=== PATIENT | male | born 1950 | race Caucasian/White ===

== ENCOUNTER 2017-12-21 11:43 | Day surgery (SDC) | payer BC, MEDICAID ==
[2017-12-21] MEDS ORDERED: LIDOCAINE 2% MDV (20MG/ML) 20ML VIAL IV ONE (11:44)
[2017-12-21] MEDS ORDERED: FENTANYL PF 0.25MG/5ML AMPUL IV ONE (11:44)
--- NOTE | 2017-12-25 12:30 | Operative Note ---
DATE OF SURGERY: 12/21/2017 SURGEON: Katelyn Nichols MD OPERATION: COLONOSCOPY. INDICATIONS: This is a 67-year-old male with history of colon polyps who presented for surveillance colonoscopy. POSTOPERATIVE DIAGNOSES: 1. Two 2-3 mm sigmoid colon polyps that were removed by cold biopsy forceps. 2. Poor bowel preparation especially in the right colon. ANESTHESIA: Sedation is per Anesthesia. Pulse oximetry was monitored throughout the procedure to maintain O2 saturation of 90% or greater. Supplemental oxygen was administered via nasal cannula. Cardiac and vital signs were monitored throughout the duration of the procedure, and they were stable. The procedure of colonoscopy and risks and alternatives of the procedure, including the risk of bleeding and perforation, among others, were explained to the patient who voiced understanding and agreed to have the procedure done. Physical examination was performed, and the patient was found stable for sedation. PROCEDURE: The patient was placed in the left lateral position. Sedation was initiated. A digital rectal exam was performed and showed some mild external hemorrhoids with no palpable rectal masses. An Olympus PCF-180AL colonoscope was then inserted into the rectum under direct visualization. It was advanced to the cecum without difficulty. The ileocecal valve and appendiceal orifice were identified and photographed. The colonic mucosa was carefully examined upon introduction of the colonoscope. There were two 2-3 mm sessile polyps in the sigmoid colon that were noted and they were removed by cold biopsy forceps. There were no other lesions noted. In the right colon, however, was suboptimal bowel preparation that precluded complete examination of the cecum and the proximal ascending colon. The colonoscope was then withdrawn while carefully examining the colonic mucosal surfaces. No other lesions were noted. In the rectum, retroflexion was performed and grade 1 internal hemorrhoids were noted. The colonoscope was then withdrawn and the procedure was terminated. The patient tolerated the procedure well without any immediate complications. He remained with stable vital signs and was transferred to the recovery room. RECOMMENDATIONS: 1. The patient should be on a high-fiber diet. 2. The patient is to have a repeat colonoscopy in a year with 2-day to 3-day bowel preparation. Thank you for allowing me to participate in the care of your patient. CC: Dr. Emanuel HUI
== END 2017-12-21 13:48 | disposition home or self-care (01) ==
LOC: HOP 11:43
PROVIDERS: ATTEND Internal Medicine Gastroenterology
DX: Z12.11 Encounter for screening for malignant neoplasm of colon (principal); Z86.010 Personal history of colon polyps; D12.5 Benign neoplasm of sigmoid colon; Z86.718 Personal history of other venous thrombosis and embolism; Z79.01 Long term (current) use of anticoagulants

== ENCOUNTER 2018-04-11 01:32 | Observation (INO) | payer BC, MEDICAID ==
[2018-04-11] MEDS ORDERED: ONDANSETRON HCL IV 4 MG/2 ML VIAL IV ONE (01:57)
[2018-04-11] MEDS ORDERED: SODIUM CHLORIDE 0.9% 500 ML IV ONE (01:57)
[2018-04-11] MEDS ORDERED: MORPHINE SULFATE 10 MG/ML VIAL IVP ONE ×2 (01:58→02:19)
--- NOTE | 2018-04-11 02:05 | Emergency Department Record ---
History of Present Illness - General Chief Complaint: Abdominal Pain Stated Complaint: UPSET STOMACH-ATE BAD EGGS Time Seen by Provider: 04/11/18 01:46 Source: Patient Mode of Arrival: Ambulatory Limitations: No limitations - History of Present Illness Initial Comments: The patient is here due to diffuse abdominal pain for 4-5 hours. The pain is around the umbilicus and in the lower abdomen. The onset was fairly sudden and has been associated with nausea but no vomiting, diarrhea, or fever. The patient attributes the pain to eating bad eggs. He has no hx of similar issues and no hx of any abdominal surgeries. The patient does take Xarelto due to a hx of DVT's. MD Complaint: Abdominal pain Onset/Timin -: Hour(s) Location: Periumbilical, Suprapubic Severity scale (1-10): 9 Quality: Cramping Consistency: Constant Improves With: Nothing Worsens With: Nothing Associated Symptoms: Nausea - Related Data Home Medications Medication Instructions Recorded Confirmed Last Taken Rivaroxaban [Xarelto] 20 mg PO DAILY 04/11/18 04/11/18 Unknown Allergies Allergy/AdvReac Type Severity Reaction Status Date / Time No Known Drug Intolerances Allergy Unknown None Verified 01/28/15 19:16 Travel Screening - Travel/Exposure Within Last 30 Days Have you traveled within the last 30 days?: No - Travel Symptoms Symptom Screening: None Review of Systems Constitutional: Denies: Chills, Fever Eyes: Denies: Eye discharge ENT: Denies: Congestion Respiratory: Denies: Cough, Dyspnea Cardiovascular: Denies: Arrhythmia, Chest pain, Dyspnea on exertion Endocrine: Denies: Fatigue Gastrointestinal: Reports: Abdominal pain, Nausea. Denies: Diarrhea, Vomiting Genitourinary: Denies: Dysuria, Hematuria Musculoskeletal: Reports: Back pain (chronic.) Past Medical History - SOCIAL HISTORY Smoking Status: Current every day smoker Alcohol Use: Rare Drug Use: None - RESPIRATORY Hx Respiratory Disorders: Yes Comment:: smoker - CARDIOVASCULAR Hx Cardio Disorders: Yes Hx Deep Vein Thrombosis: Yes (04/2017) Hx Edema: Yes - NEURO Hx Neuro Disorders: No - GI Hx GI Disorders: Yes Hx Reflux: Yes (not currently) Hx of Polyps: Yes - Hx Genitourinary Disorders: Yes Hx Prostate Problems: Yes - ENDOCRINE Hx Endocrine Disorders: No - MUSCULOSKELETAL Hx Musculoskeletal Disorders: Yes Hx Arthritis: Yes - PSYCH Hx Psych Problems: No - HEMATOLOGY/ONCOLOGY Hx Hematology/Oncology Disorders: Yes Hx Clotting Problems: Yes (on Xarleto for hx DVT) Family Medical History Any Significant Family History?: Yes Hx Cancer: Father *Cancer Comment: bone Hx HTN: Mother Physical Exam - General General Appearance: Alert, Oriented x3, Cooperative, Mild distress (due to AP.) - Head Head exam: Atraumatic, Normocephalic - Eye Eye exam: Normal appearance, PERRL - Neck Neck exam: Normal inspection, Full ROM. negative: Tenderness - Respiratory Respiratory exam: Normal lung sounds bilaterally. negative: Respiratory distress - Cardiovascular Cardiovascular Exam: Regular rate, Normal rhythm, Normal heart sounds - GI/Abdominal GI/Abdominal exam: Soft, Tenderness (There is mild diffuse lower abdominal tenderness.). negative: Distended, Guarding, Rebound, Rigid - Extremities Extremities exam: Normal inspection, Full ROM, Normal capillary refill. negative: Tenderness Image of Full Body: 1 - Area of pain and tenderness. - Neurological Neurological exam: Alert, Normal gait. negative: Abnormal gait, Motor sensory deficit - Psychiatric Psychiatric exam: negative: Anxious Course Vital Signs 04/11/18 01:40 Temperature 97.9 F Pulse Rate [ 61 Pulse Ox Probe] Respiratory 18 Rate Blood Pressure 167/102 [Left Arm] Pulse Ox 99 - Reevaluation(s) Reevaluation #1: The patient is doing better at this time. His pain is improved and he is back from CT. I did explain to him that his CT does demonstrate an infection in his GB. Due to that fact I did recommend a surgical consultation and did discuss the case with Dr. Hernandez who would like to admit the patient to the hospital for surgery later today. 04/11/18 03:59 Reevaluation #2: The patient now states he must go home briefly to take care of 2 dogs and no one else can do it. I explained to him that the risks of leaving are that he could get a worse infection, have sepsis, become disabled and . The patient states he will return and understands he will be leaving AMA. I also clearly explained to the patient that he could not drive home. His cousin is here and she will drive him there and back. 04/11/18 04:11 04/11/18 04:27 Medical Decision Making - Data Complexity MDM Data: Labs Ordered and/or Reviewed, X-Ray Ordered and/or Reviewed - Lab Data Result diagrams: 04/11/18 02:05 04/11/18 02:05 - Radiology Data Radiology results: Report reviewed (CT: Lobular density in GB prob gallstone. Distended GB with small amount of fluid suggesting acute Cholecystitis.) Disposition Disposition: Admit Clinical Impression: Acute cholecystitis Disposition: Still a Patient at [facility] Decision to Admit: Admit from ER Decision to Admit Date: 04/11/18 Decision to Admit Time: 04:01 Accepting Physician: Mary Time Discussed w/Accepting Physician: 04:01 Condition: (2) Stable Forms: Patient Portal Access Time of Disposition: 04:01 Quality - Quality Measures Quality Measures: N/A - Blood Pressure Screening View Details: Yes Does Patient Have Any of the Following: No Blood Pressure Classification: Pre-Hypertensive BP Reading Systolic Measurement: 141 Diastolic Measurement: 84 Screening for High Blood Pressure: < Pre-Hypertensive BP, F/U Documented > [ G8950] Pre-Hypertensive Follow-up Interventions: Referral to alternative/primary care provider.
[2018-04-11 02:10] LABS: BASO % 0.3 % (0-6); EOS % 0.9 % (0-6); GRAN % 55.7 % (47-80); HEMATOCRIT 46.2 % (42.0-52.0); HEMOGLOBIN 15.5 gm/dl (14.0-18.0); LYMPH % 39.4 % (16-45); MEAN CELL VOLUME 84.9 fl (81-97); MEAN CORPUSCULAR HEMOGLOBIN 28.5 pg (27-33); MEAN CORPUSCULAR HGB CONC 33.5 g/dl (32-36); MEAN PLATELET VOLUME 9.7 fl (7.4-10.4); MONO % 3.7 % (0-9); PLATELET COUNT 273 K/uL (130-400); RED BLOOD COUNT 5.44 M/uL (4.40-5.70); RED CELL DISTRIBUTION WIDTH 14.4 % (11.5-14.5)
[2018-04-11 02:22] LABS: PARTIAL THROMBOPLASTIN TIME 29.9 SECONDS (24.5-39.1); PROTHROMBIN TIME (PATIENT) 10.4 SECONDS (9.5-12.1)
[2018-04-11 02:34] LABS: BLOOD UREA NITROGEN 13 mg/dL (8-23); CREATININE 0.7 mg/dL (0.7-1.2); EST GLOMERULAR FILTRATION RATE > 60 mL/min
[2018-04-11 02:35] LABS: TOTAL PROTEIN 7.9 g/dL (6.6-8.7)
[2018-04-11 02:36] LABS: GLUCOSE,RANDOM 124 mg/dL (74-109)
[2018-04-11 02:39] LABS: ALBUMIN 4.8 g/dL (4.0-5.0); ALKALINE PHOSPHATASE 77 U/L (40-129); ALT/SGPT 11 U/L (<41); AST/SGOT 13 U/L (10.0-50.0); BILIRUBIN,DIRECT < 0.2 mg/dL (0-0.3); LIPASE 14 U/L (13-60)
[2018-04-11 03:25] LABS: URINE APPEARANCE CLEAR; URINE BILIRUBIN NEGATIVE (NEGATIVE); URINE BLOOD SMALL (NEGATIVE); URINE COLOR YELLOW; URINE GLUCOSE (UA) NEGATIVE (NEGATIVE); URINE KETONE NEGATIVE (NEGATIVE); URINE LEUKOCYTE ESTERASE NEGATIVE (NEGATIVE); URINE NITRITE NEGATIVE (NEGATIVE); URINE UROBILINOGEN 0.2 E.U./dL (0.20 - 1.00)
[2018-04-11 03:41] LABS: URINE EPITHELIAL CELLS 0 - 2 (FEW); URINE RBC 0 - 2 (NONE SEEN); URINE WBC 0 - 2 (0-2/hpf)
[2018-04-11] MEDS ORDERED: ERTAPENEM SODIUM 1 G in 0.9 % SODIUM CHLORIDE 100ML 100 ML IVPB ONE (03:51)
[2018-04-11] MEDS ORDERED: FENTANYL PF 100MCG/2ML VIAL IV ONE (06:11)
[2018-04-11] MEDS ORDERED: ROCURONIUM BROMIDE 50MG/5ML VIAL IV ONE (06:11)
[2018-04-11] MEDS ORDERED: BUPIVACAINE 0.25% W/EPI MPF 30ML VIAL IVP ONE (06:11)
[2018-04-11] MEDS ORDERED: ONDANSETRON HCL IV 4 MG/2 ML VIAL IVP ONE ×2 (06:11→06:14)
[2018-04-11] MEDS ORDERED: PROPOFOL 10 MG/ML VIAL IV ONE (06:11)
[2018-04-11] MEDS ORDERED: SUGAMMADEX SODIUM 200 MG/2 ML VIAL IV ONE (06:11)
[2018-04-11] MEDS ORDERED: HYDROMORPHONE HCL 2 MG/ML VIAL IV ONE ×2 (06:11)
[2018-04-11] MEDS ORDERED: 0.9 % SODIUM CHLORIDE 100ML BAG IV ONE (06:11)
[2018-04-11] MEDS ORDERED: SEVOFLURANE 250 ML INH ONE (06:11)
[2018-04-11] MEDS ORDERED: KETOROLAC 30 MG/ML VIAL IVP ONE (06:11)
[2018-04-11] MEDS ORDERED: SUCCINYLCHOLINE 20 MG/ML 10ML IVP ONE (06:11)
[2018-04-11] MEDS ORDERED: MIDAZOLAM HCL 2MG/2ML VIAL IV ONE (06:11)
[2018-04-11] MEDS ORDERED: METOCLOPRAMIDE 10 MG TABLET PO ONE ×2 (06:11→16:00)
[2018-04-11] MEDS: 0.9 % SODIUM CHLORIDE 1000ML 1,000 ML IV PRN ×3 (06:41→22:24)
[2018-04-11] MEDS: HYDROMORPHONE HCL 2 MG/ML VIAL IVP PRN ×5 (08:04→23:24)
[2018-04-11] MEDS: ONDANSETRON HCL IV 4 MG/2 ML VIAL IVP PRN ×2 (08:09→13:07)
--- NOTE | 2018-04-11 10:22 | CT SCAN REPORT ---
EXAM: CT OF THE ABDOMEN AND PELVIS WITH CONTRAST HISTORY: ABDOMINAL PAIN. TECHNIQUE: Sequential axial images were obtained from the diaphragms through the ischiorectal fossa after intravenous administration of 100 ml of Omnipaque 300 contrast material. FINDINGS: The visualized lung bases appear normal. The heart and pericardium appear normal. The liver appears homogeneous. There is cholelithiasis. No ductal dilatation. The pancreas and spleen appear normal. The adrenal glands and kidneys appear normal. The small bowel appears normal. The appendix is visualized and appears normal. The colon appears normal. The urinary bladder appears normal. No retroperitoneal lymphadenopathy. IMPRESSION: 1. CHOLELITHIASIS. NO DUCTAL DILATATION. MILD GALLBLADDER DISTENTION. ACUTE GALLBLADDER DISEASE NOT EXCLUDED. 2. THE APPENDIX IS VISUALIZED AND APPEARS NORMAL. JOB NUMBER: [id number] [facility]
[2018-04-11] MEDS ORDERED: ONDANSETRON HCL IV 4 MG/2 ML VIAL IVP PRN (13:10)
[2018-04-11] MEDS ORDERED: MECLIZINE 25 MG TABLET PO ONE (16:00)
[2018-04-11] MEDS ORDERED: FAMOTIDINE 20MG TABLET PO ONE (16:00)
[2018-04-11] MEDS ORDERED: ACETAMINOPHEN 1,000 MG/100 ML BTL IV ONE (16:00)
[2018-04-11] MEDS ORDERED: CEFAZOLIN 2 Gram 2 GM/50 ML BAG IVPB SCH (17:00)
[2018-04-11] MEDS: ACETAMINOPHEN 1,000 MG/100 ML BTL IVPB SCH (22:18)
[2018-04-11] MEDS ORDERED: DIPHENHYDRAMINE HCL 50 MG/ML VIAL IVP PRN (23:21)
[2018-04-12] MEDS: HYDROMORPHONE HCL 2 MG/ML VIAL IVP PRN (03:13)
[2018-04-12] MEDS: ACETAMINOPHEN 1,000 MG/100 ML BTL IVPB SCH ×3 (05:43→06:15)
[2018-04-12] MEDS: 0.9 % SODIUM CHLORIDE 1000ML 1,000 ML IV PRN (08:49)
[2018-04-12] MEDS ORDERED: HYDROCODONE/APAP 5/325MG TABLET PO PRN (10:14)
--- NOTE | 2018-04-15 12:30 | Operative Note ---
DATE OF SURGERY: 04/11/2018 Surgeon: Vitaliy Jones DO PREOPERATIVE DIAGNOSIS: Acute cholecystitis. POSTOPERATIVE DIAGNOSIS: Acute cholecystitis. OPERATION: Laparoscopic cholecystectomy. Indication: The patient is a 67-year-old male who was admitted to the hospital this morning with right upper quadrant pain. Workup was consistent with acute cholecystitis. We did discuss cholecystectomy. Risks, benefits, and alternatives were discussed. Risks include bleeding, infection, bile duct injury, bile leak. He understood this fully. The patient had been on Xarelto and therefore bleeding risks were discussed as well. PROCEDURE: Therefore, he was taken to the operating room and placed in a supine position. General anesthesia was administered per the department of anesthesia. The patient's abdomen was prepped and draped in the usual sterile fashion. Adequate timeout was performed. Supraumbilical incision was then made. This was carried down to the anterior rectus fascia bluntly. This was incised. Melanie clamps were placed on the fascial edges and brought up into the wound. Stay sutures of 0 Vicryl were placed. Posterior rectus sheath was identified and incised. The peritoneal cavity was entered bluntly. At this time, a 10 mm blunt Shala port was placed and adequate pneumoperitoneum was established. The patient was then rotated into steep reverse Trendelenburg with rotation to the left. Additional 5 mm epigastric and two 5 mm right subcostal ports were placed. The gallbladder was very tense and distended and we were unable to grasp this. Therefore, this was drained with a Biermann needle of about 80 mL of clear bile consistent with gallbladder hydrops. The gallbladder was then retracted in a cephalad direction. The patient's transverse colon was stuck to the anterior aspect, and this was wiped down bluntly. No bowel injury noted. The hepatocystic triangle was thoroughly dissected out. There was no aberrant anatomy, no posterior ductal structures. The cystic duct and cystic artery were clearly identified. The distal half of the gallbladder was released from the cystic plate elongating our retroductal window. We had an excellent critical view of safety. The cystic duct and cystic artery were triply clipped and cut in a standard fashion. Gallbladder was then taken off the liver bed with Jensen harmonic. This was placed in an EndoCatch bag and brought out through the umbilical port. Right upper quadrant was then irrigated with approximately 1 liter of normal saline. I did apply FloSeal to the liver bed. Hemostasis was noted. The rest of the external exam of small and large bowel and stomach was grossly normal. The patient did have fatty infiltration of the liver. At this time. Patient leveled out. The pneumoperitoneum was released. All ports were removed. The fascia was closed with 0 Vicryl in a [id number] fashion. The skin at all 4 ports was closed with 4-0 Vicryl. The patient was taken to the recovery room in satisfactory condition. FINDINGS AT THE TIME OF SURGERY: Acute cholecystitis with gallbladder hydrops. CC: MD EZ Callahan
== END 2018-04-12 11:30 | disposition home or self-care (01) ==
LOC: ER 01:32 → MEDSURG 06:10
PROVIDERS: ADMIT Internal Medicine; ATTEND Surgery
DX: K81.0 Acute cholecystitis (principal); M46.90 Unspecified inflammatory spondylopathy, site unspecified; F17.210 Nicotine dependence, cigarettes, uncomplicated; Z86.718 Personal history of other venous thrombosis and embolism; Z79.01 Long term (current) use of anticoagulants
CPT/HCPCS: 47562; 00790; 99285 ×2; 96374; 96365; 96375; 83605; 83690; 85025; 85730; 85610; 80076; 80048; 81001; 74177; 93005; G0378 ×2; Q9967; J1335; J1885; J2405; J3010; J1170 ×2; J3490; J2270; C1776; J0330; J1200

== ENCOUNTER 2019-03-13 21:15 | Emergency (ER) | payer MEDICARE, OTHER, MEDICAID ==
[2019-03-13] MEDS ORDERED: Diph,Pert(Acell),Tet Vac 0.5 ML SYR IM ONE (21:40)
--- NOTE | 2019-03-13 22:51 | Emergency Department Record ---
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 Complaint: Foot injury Onset/Timin -: Hour(s) Injury: Foot: Left Type of Injury: Puncture wound Place: Home Severity: Mild Severity scale (1-10): 1 Improves With: Nothing Worsens With: Nothing Context: Stepped on nail - Related Data Previous Rx's Medication Instructions Recorded Cephalexin [Keflex] 500 mg PO TID #20 cap 03/13/19 Allergies Allergy/AdvReac Type Severity Reaction Status Date / Time No Known Drug Intolerances Allergy Unknown None Verified 01/28/15 19:16 Travel Screening - Travel/Exposure Within Last 30 Days Have you traveled within the last 30 days?: No - Travel/Exposure Within Last Year Have you traveled outside the [place] in the last year?: No - Additonal Travel Details Have you been exposed to anyone with a communicable illness?: No - Travel Symptoms Symptom Screening: None Review of Systems Reviewed: No additional complaints except as noted below Constitutional: Reports: As per HPI. Denies: Chills, Fever, Malaise, Night sweats, Weakness, Weight change Eyes: Reports: As per HPI. Denies: Eye discharge, Eye pain, Photophobia, Vision change ENT: Reports: As per HPI. Denies: Congestion, Dental pain, Ear pain, Epistaxis, Hearing loss, Throat pain Respiratory: Reports: As per HPI. Denies: Cough, Dyspnea, Hemoptysis, Stridor, Wheezes Cardiovascular: Reports: As per HPI. Denies: Arrhythmia, Chest pain, Dyspnea on exertion, Edema, Murmurs, Orthopnea, Palpitations, Paroxysmal nocturnal dy spnea, Rheumatic Fever, Syncope Endocrine: Reports: As per HPI. Denies: Fatigue, Heat or cold intolerance, Polydipsia, Polyuria Gastrointestinal: Reports: As per HPI. Denies: Abdominal pain, Constipation, Diarrhea, Hematemesis, Hematochezia, Melena, Nausea, Vomiting Genitourinary: Reports: As per HPI. Denies: Dysuria, Frequency, Hematuria, Incontinence, Retention, Testicular pain, Testicular mass, Urgency Musculoskeletal: Reports: As per HPI. Denies: Arthralgia, Back pain, Gout, Joint swelling, Myalgia, Neck pain Skin: Reports: As per HPI. Denies: Bruising, Change in color, Change in hair/nails, Lesions, Pruritus, Rash Neurological: Reports: As per HPI. Denies: Abnormal gait, Confusion, Headache, Numbness, Paresthesias, Seizure, Tingling, Tremors, Vertigo, Weakness Psychiatric: Reports: As per HPI. Denies: Anxiety, Auditory hallucinations, Depression, Homicidal thoughts, Suicidal thoughts, Visual hallucinations Hematological/Lymphatic: Reports: As per HPI. Denies: Anemia, Blood Clots, Easy bleeding, Easy bruising, Swollen glands Past Medical History - SOCIAL HISTORY Smoking Status: Current every day smoker Alcohol Use: None Drug Use: None - RESPIRATORY Hx Respiratory Disorders: Yes Comment:: smoker - CARDIOVASCULAR Hx Cardio Disorders: Yes Hx Deep Vein Thrombosis: Yes (BILAT LEGS 04/2017) Hx Edema: Yes (LAST WEEK-NOT NOW) - NEURO Hx Neuro Disorders: No - GI Hx GI Disorders: Yes Hx Abdominal Pain: Yes Hx Reflux: Yes (not currently) Hx Nausea/Vomiting: Yes Hx of Polyps: Yes - Hx Genitourinary Disorders: Yes Hx Prostate Problems: Yes (SOMETIMES) - ENDOCRINE Hx Endocrine Disorders: No - MUSCULOSKELETAL Hx Musculoskeletal Disorders: Yes Hx Arthritis: Yes (ALL THRU BODY) - PSYCH Hx Psych Problems: No - HEMATOLOGY/ONCOLOGY Hx Hematology/Oncology Disorders: Yes Hx Clotting Problems: Yes (on Xarleto for hx DVT) Family Medical History Any Significant Family History?: Yes Hx Cancer: Father *Cancer Comment: bone Hx HTN: Mother Physical Exam - General General Appearance: Alert, Oriented x3, Cooperative, Mild distress - Head Head exam: Normal inspection - Eye Eye exam: Normal appearance, PERRL, EOMI Pupils: Normal accommodation - ENT ENT exam: Normal exam, Mucous membranes moist, Normal external ear exam, Normal orophraynx Ear exam: Normal external inspection. negative: External canal tenderness Nasal Exam: Normal inspection. negative: Discharge, Sinus tenderness Mouth exam: Normal external inspection, Tongue normal Teeth exam: Normal inspection. negative: Dental caries Throat exam: Normal inspection. negative: Tonsillar erythema, Tonsillar exudate - Neck Neck exam: Normal inspection, Full ROM. negative: Tenderness - Respiratory Respiratory exam: Normal lung sounds bilaterally. negative: Respiratory distre ss - Cardiovascular Cardiovascular Exam: Regular rate, Normal rhythm, Normal heart sounds - GI/Abdominal GI/Abdominal exam: Soft, Normal bowel sounds. negative: Tenderness - Rectal Rectal exam: Deferred - exam: Deferred - Extremities Extremities exam: Normal inspection, Full ROM, Normal capillary refill, Tenderness Image of Feet: 1 - puncture - Back Back exam: Reports: Normal inspection, Full ROM. Denies: Muscle spasm, Rash noted, Tenderness - Neurological Neurological exam: Alert, CN II-XII intact, Normal gait, Oriented X3 - Psychiatric Psychiatric exam: Normal affect, Normal mood - Skin Skin exam: Dry, Intact, Normal color, Warm Course Vital Signs 03/13/19 21:25 Temperature 98.2 F Pulse Rate [ 97 H Left] Respiratory 16 Rate Blood Pressure 133/88 [Left] Pulse Ox 95 - Reevaluation(s) Reevaluation #1: 03/13/19 22:58 area steriley prepped and draped. cleansed thoroughly and explored. no fb Disposition Disposition: Discharge Clinical Impression: Puncture wound of skin from metal nail Disposition: Home, Self-Care Condition: (1) Good Instructions: Puncture Wound (ED) Additional Instructions: follow up with family doctor. return sooner if worse. keep foot clean Prescriptions: Cephalexin [Keflex] 500 mg PO TID #20 cap Quality - Quality Measures Quality Measures: N/A - Blood Pressure Screening Does Patient Have Any of the Following: No Blood Pressure Classification: Pre-Hypertensive BP Reading Systolic Measurement: 133 Diastolic Measurement: 88 Screening for High Blood Pressure: < Pre-Hypertensive BP, F/U Documented > [G8950] Pre-Hypertensive Follow-up Interventions: Follow-up with rescreen every year.
--- NOTE | 2019-03-14 15:05 | RADIOLOGY REPORT ---
EXAM: RIGHT FOOT, THREE VIEWS HISTORY: STEPPED ON NAIL. TECHNIQUE: Three views of the right foot were obtained. Comparison: None. Encounter: Initial. FINDINGS: There is normal bone mineralization. No fracture, dislocation, or destructive bone lesion is seen. There are mild osteoarthritic changes of the first MTP joint as well as within the hindfoot and midfoot. No periarticular erosion. There is a tiny plantar calcaneal spur. No radiopaque foreign body. IMPRESSION: 1. NO ACUTE BONE NOR JOINT ABNORMALITY. NO RADIOPAQUE FOREIGN BODY. 2. MILD DEGENERATIVE CHANGES SCATTERED WITHIN THE FOOT AND ANKLE. TINY PLANTAR CALCANEAL SPUR. JOB NUMBER: [id number] [facility]
== END 2019-03-13 23:10 | disposition home or self-care (01) ==
LOC: ER 21:15
DX: S91.331A Puncture wound without foreign body, right foot, initial encounter (principal); W22.8XXA Striking against or struck by other objects, initial encounter; Y93.9 Activity, unspecified; F17.210 Nicotine dependence, cigarettes, uncomplicated
CPT/HCPCS: 90715; 96372; 99283

== ENCOUNTER 2019-05-16 09:26 | Day surgery (SDC) | payer MEDICARE, MEDICAID ==
[2019-05-16] MEDS ORDERED: LIDOCAINE 2% MDV (20MG/ML) 20ML VIAL IV ONE (09:27)
[2019-05-16] MEDS ORDERED: PROPOFOL 10 MG/ML VIAL IV ONE (09:27)
--- NOTE | 2019-05-19 10:51 | Operative Note ---
SURGEON: Katelyn Nichols MD OPERATION: COLONOSCOPY. INDICATIONS: This is a 68-year-old male with history of colon polyps who had colonoscopy about a year ago with poor bowel preparation who presented for repeat colonoscopy. POSTOPERATIVE DIAGNOSES: 1. A 3 mm sessile polyp in the descending colon that was removed by cold biopsy forceps. 2. Otherwise normal colon and terminal ileal mucosa. ANESTHESIA: Sedation is per Anesthesia. Pulse oximetry was monitored throughout the procedure to maintain O2 saturation of 90% or greater. Supplemental oxygen was administered via nasal cannula. Cardiac and vital signs were monitored throughout the duration of the procedure, and they were stable. The procedure of colonoscopy and risks and alternatives of the procedure, including the risk of bleeding and perforation, among others, were explained to the patient who voiced understanding and agreed to have the procedure done. Physical examination was performed, and the patient was found stable for sedation. PROCEDURE: The patient was placed in the left lateral position. Sedation was initiated. A digital rectal exam was performed and showed some mild external hemorrhoids with no palpable rectal masses. An Olympus PCF-180AL colonoscope was then inserted into the rectum under direct visualization. It was advanced to the cecum without difficulty. The ileocecal valve and appendiceal orifice were identified and photographed. The colonic mucosa was carefully examined upon introduction of the colonoscope. There were no lesions noted in the terminal ileum, cecum, ascending colon, and transverse colon. In the descending colon, however, was a 3 mm sessile polyp that was noted and was removed by cold biopsy forceps. The rest of the colonic mucosa appeared normal. In the rectum, retroflexion was performed and grade 1 internal hemorrhoids were noted. The colonoscope was then withdrawn and the procedure was terminated. The patient tolerated the procedure well without any immediate complications. The patient remained with stable vital signs and was transferred to the recovery room. RECOMMENDATIONS: 1. The patient should be on a high-fiber diet. 2. The patient is to have a repeat colonoscopy for surveillance in 5 years. Thank you for allowing me to participate in the care of your patient. EZ
== END 2019-05-16 11:00 | disposition home or self-care (01) ==
LOC: HOP 09:26
PROVIDERS: ATTEND Internal Medicine Gastroenterology
DX: Z09 Encounter for follow-up examination after completed treatment for conditions other than malignant neoplasm (principal); Z86.010 Personal history of colon polyps; D12.4 Benign neoplasm of descending colon; I82.409 Acute embolism and thrombosis of unspecified deep veins of unspecified lower extremity